=== PATIENT | female | born 1955 | race Caucasian/White ===

== ENCOUNTER → 2024-01-24 13:31 | Outpatient (REF) | payer MEDICARE, SELFPAY | LOC: HWWDC 13:31 | PROVIDERS: ATTENDING PHYSICIAN Obstetrics & Gynecology; FAMILY PHYSICIAN Family Medicine; REFERRING PHYSICIAN Radiology Radiation Oncology | DX: Z12.31 Encounter for screening mammogram for malignant neoplasm of breast (principal) | CPT/HCPCS: 77063; 77067 ==

== ENCOUNTER → 2024-10-29 06:46 | Outpatient (REF) | payer MEDICARE, SELFPAY | LOC: EMG 06:46 | PROVIDERS: ATTENDING PHYSICIAN Orthopaedic Surgery Hand Surgery; FAMILY PHYSICIAN Family Medicine | DX: M25.531 Pain in right wrist (principal); M25.321 Other instability, right elbow; R20.0 Anesthesia of skin | CPT/HCPCS: 95886; 95911 ==

== ENCOUNTER → 2025-01-31 06:43 | Outpatient (REF) | payer MEDICARE, SELFPAY | LOC: HWWDC 06:43 | PROVIDERS: ATTENDING PHYSICIAN Obstetrics & Gynecology; FAMILY PHYSICIAN Family Medicine | DX: Z12.31 Encounter for screening mammogram for malignant neoplasm of breast (principal) | CPT/HCPCS: 77063; 77067 ==